=== PATIENT | female | born 1965 | race Two or more races ===

== ENCOUNTER 2019-01-23 06:41 | Day surgery (SDC) | payer OTHER ==
[2019-01-23] VITALS (11 sets, daily range): BP systolic 90–137; BP diastolic 55–86
[~2019-01-23] VITALS: Ht 157.5 cm; Wt 69.9 kg
[~2019-01-23 06:41] MED LIST: ceFAZolin 1gm IVPB IVPB ONE; celeBREX 200mg Cap **SURGERY PATIENTS ONLY ORAL ONE; oxyCONTIN 20mg tab ORAL ONE
--- NOTE | 2019-01-23 07:34 | Pre-Procedure Note/Attestation ---
Pre-Procedure Note/Attestation Complete Prior to Procedure Planned Procedure: right Procedure Narrative: knee diagnosctic arthroscopy, possible mensectomy, chondroplasty, synovectomy Indications for Procedure Pre-Operative Diagnosis: right knee internal deragment Attestation I attest that I discussed the nature of the procedure; its benefits; risks and complications; and alternatives (and the risks and benefits of such alternatives ), prior to the procedure, with the patient (or the patient's legal commissary representative). I attest that, if there was a reasonable possibility of needing a blood transfusion, the patient (or the patient's legal commissary representative) was given the [facility] standardized written summary, pursuant to the Sree Patrick Blood Safety Act ([place] Health and Safety Code # 1645, as amended). I attest that I re-evaluated the patient just prior to the surgery and that there has been no change in the patient's H&P, except as documented below: José Antonio Antony MD Jan 23, 2019 07:34
--- NOTE | 2019-01-23 07:34 | Operative Note - PDOC ---
Operative Note Operative Note Pre-op Diagnosis: right knee internal deragment Procedure: see op report Post-op Diagnosis: same as pre-op plus Operative Findings: consistent w/pre-op dx studies Anesthesia: MAC Specimen: none Complications: none Condition: stable Estimated Blood Loss: none Implant(s) used?: No José Antonio Antony MD Jan 23, 2019 07:34
[2019-01-23] MEDS ORDERED: Tylenol #3 tab (300mg/30mg) ORAL PRN (07:45)
[2019-01-23] MEDS ORDERED: HYDROmorphone 1mg/ml Carpuject SUBQ PRN (07:45)
[2019-01-23] MEDS ORDERED: D5 1/2NS 1,000 ML IV SCH (07:45)
[2019-01-23] MEDS ORDERED: HYDROcodone/Acetamin 5/325 tab ORAL PRN (07:45)
[2019-01-23] MEDS ORDERED: NKM (07:49)
[2019-01-23] MEDS ORDERED: celeBREX 200mg Cap **SURGERY PATIENTS ONLY ORAL ONE (08:07)
[2019-01-23] MEDS ORDERED: oxyCONTIN 20mg tab ORAL ONE (08:07)
--- NOTE | 2019-01-23 08:44 | Anethesia Preoperative Eval ---
Anesthesia Pre-op PMH/ROS General Date of Evaluation: Jan 23, 2019 Anesthesiologist: Troy ASA Score: ASA 1 Mallampati Score Class I : Soft palate, uvula, fauces, pillars visible Class II: Soft palate, uvula, fauces visible Class III: Soft palate, base of uvula visible Class IV: Only hard plate visible Mallampati Classification: Class I Surgeon: Arpan Diagnosis: right knee pain Surgical Procedure: right knee arthrocopy Anesthesia History: none Family History: no anesthesia problems Allergies: Coded Allergies: No Known Allergies (Unverified , 01/23/19) Medications: see eMAR Patient NPO?: Yes NPO Date: Jan 22, 2019 NPO Time: 22:00 Past Medical History Cardiovascular: Denies: HTN, CAD, [place], valve dz, arrhythmia, other Pulmonary: Denies: asthma, COPD, PORFIRIO, other Gastrointestinal/Genitourinary: Denies: GERD, CRI, ESRD, other Neurologic/Psychiatric: Denies: dementia, CVA, depression/anxiety, TIA, other Endocrine: Denies: DM, hypothyroidism, steroids, other HEENT: Denies: cataract (L), cataract (R), glaucoma, RENO-SPARKS (L), RENO-SPARKS (R), other Hematology/Immune: Denies: anemia, DVT, bleeding disorder, other Musculoskeletal/Integumentary: Denies: OA, RA, DJD, DDD, edema, other PSxH Narrative: right ear sx, c/s, cervical spine sx Anesthesia Pre-op Phys. Exam Physician Exam Last Vital Signs Date Time Temp Pulse Resp B/P (MAP) Pulse Ox O2 Delivery O2 Flow Rate FiO2 01/23/19 08:00 Room Air 01/23/19 07:56 98.0 51 18 116/74 98 Constitutional: NAD Cardiovascular: RRR Respiratory: CTA Airway Exam Mallampati Score: Class II MO: full ROM: full Teeth: intact Anesthesia Pre-op A/P Labs see chart Studies Pre-op Studies: EKG - sr Risk Assessment & Plan Assessment: ASA I Plan: GA Status Change Before Surgery: No Pre-Antibiotics Drug: Ancef 1g Given Within 1 Hr of Incision: Yes Herlinda Diallo MD Jan 23, 2019 08:44
[2019-01-23] MEDS ORDERED: LR 1000ml 1,000 ML IVLG SCH (09:04)
[2019-01-23] MEDS ORDERED: Midazolam 2mg/2ml Inj IVP PRN (09:15)
[2019-01-23] MEDS ORDERED: DiphenhydrAMINE 50mg/ml Inj IVP PRN (09:15)
[2019-01-23] MEDS ORDERED: Metoclopramide 10mg/2ml Inj IVP PRN (09:15)
[2019-01-23] MEDS ORDERED: LORazepam Inj 2mg/ml 1ml IV PRN (09:15)
[2019-01-23] MEDS ORDERED: Hydromorphone 0.5mg/0.5ml inj IVP PRN (09:15)
[2019-01-23] MEDS ORDERED: Ketorolac 30mg Inj IV PRN (09:15)
[2019-01-23] MEDS ORDERED: fentaNYL 100 mcg/2 mL IV PRN (09:15)
[2019-01-23] MEDS ORDERED: Duramorph PF 5mg/10ml amp ONE (09:18)
[2019-01-23] MEDS ORDERED: Bupivacaine w/Epi 0.5% 30ml Vial INJ ONE (09:18)
[2019-01-23] MEDS ORDERED: Lidocaine 1% 10mg/ml/Epi 0.005mg/ml 30ml vial INJ ONE (09:18)
[2019-01-23] MEDS ORDERED: Kenalog-40 1ml Vial ONE (09:18)
[2019-01-23] MEDS ORDERED: Bupivacaine 0.25% Inj 30ml INJ ONE (09:18)
[2019-01-23] MEDS ORDERED: Dexamethasone 4mg/ml vial ONE (09:52)
[2019-01-23] MEDS ORDERED: Lidocaine 1% MPF 10mg/ml 5ml ONE (09:52)
[2019-01-23] MEDS ORDERED: Propofol 200mg/20ml IV ONE (09:52)
[2019-01-23] MEDS ORDERED: Midazolam 2mg/2ml Inj ONE (09:52)
[2019-01-23] MEDS ORDERED: fentaNYL 100 mcg/2 mL ONE (09:52)
[2019-01-23] MEDS ORDERED: Sterile Water Irrig 1000ml IRRIG ONE (10:00)
[2019-01-23] MEDS ORDERED: LR 1000ml ONE (10:00)
[2019-01-23] MEDS ORDERED: Ketorolac 30mg Inj IM ONE (10:26)
[2019-01-23] MEDS ORDERED: NS Irrig 4000ml IRRIG ONE (10:30)
--- NOTE | 2019-01-23 10:47 | Immediate Post-Op Evaluation ---
Immediate Post-Op Evalulation Immediate Post-Op Evalulation Procedure: right knee arthrosocpy Date of Evaluation: Jan 23, 2019 Time of Evaluation: 10:48 IV Fluids: 500 Blood Products: 0 Estimated Blood Loss: min Urinary Output: 0 Blood Pressure Systolic: 90 Blood Pressure Diastolic: 55 Pulse Rate: 49 Respiratory Rate: 18 O2 Sat by Pulse Oximetry: 100 Temperature (Fahrenheit): 97.2 Pain Score (1-10): 0 Nausea: No Vomiting: No Complications 0 Patient Status: reacts, patent, none Hydration Status: adequate Drug: Ancef 1g Given Within 1 Hr of Incision: Yes Herlinda Diallo MD Jan 23, 2019 10:47
--- NOTE | 2019-01-23 10:47 | 48 Hour Post Anesthesia Eval ---
Post Anesthesia Evaluation Procedure: right knee arthrosocpy Date of Evaluation: Jan 23, 2019 Airway: patent Nausea: No Vomiting: No Pain Intensity: 0 Hydration Status: adequate Cardiopulmonary Status: at baseline Mental Status/LOC: patient returned to baseline Post-Anesthesia Complications: 0 Follow-up care needed: ready to discharge Herlinda Diallo MD Jan 23, 2019 10:47
--- NOTE | 2019-01-23 20:00 | Operative Note - Dictated ---
DATE OF OPERATION: 01/23/2019 PREOPERATIVE DIAGNOSES: 1. Right knee internal derangement and possible meniscal tear. 2. Right knee chondral damage. POSTOPERATIVE DIAGNOSES: 1. 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 2. Right knee osteochondral grade 2 chondral damage of the medial femoral condyle. PROCEDURES: 1. Right knee arthroscopy and synovectomy of the lateral patellofemoral compartment. 2. Gentle chondroplasty of the medial femoral condyle. SURGEON: José Antonio Antony M.D. ANESTHESIA: MAC with local. INDICATION FOR PROCEDURE: The patient is a pleasant female, who has had progressive right knee pain. She failed conservative treatment. She had an MRI, which showed some intrameniscal degeneration of the meniscus as well as subchondral damage. After failed conservative treatment, she elected to undergo right knee diagnostic arthroscopy, possible medial meniscectomy, synovectomy, and chondroplasty. Risks, limitations, expectations, and complications of the procedure were discussed in detail. All questions addressed. DESCRIPTION OF PROCEDURE: After informed consent was obtained, the patient was brought to the operating room and placed under general anesthesia, right leg was prepped and draped in a sterile manner. Time-out was performed. Inferolateral stab incision was then made. Trocar was introduced into the knee joint. There is hypertrophic synovial tissue in the retropatellar area, difficult. Medial gutter was entered and free of any meniscal or any loose bodies. Medial compartment was entered. Medial working portal was established. Synovectomy was first performed of the anterior compartment, the medial compartment, acromial arch, and lateral compartment. Once the better position was obtained, the meniscus was probed and noted to be intact. The ACL was probed and noted to be intact. The lateral compartment was entered and free of any meniscal chondral damage. Camera was repositioned in the patellofemoral compartment. Section of the fat pad synovial was completed. This revealed an area of softening of the medial femoral condyle as well as some chondral damage. The gentle chondroplasty of this area was performed. Once this was done, the instruments were removed. Portal sites were closed with 3-0 Monocryl sutures. A sterile dressing were applied. The patient was awoken and taken to recovery room with stable vital signs. ESTIMATED BLOOD LOSS: None. COMPLICATIONS: None. SPECIMENS: None. IMPLANTS: None. José Antonio Antony M.D. DR: JUANCHO JOB#: [id number] CC:
== END 2019-01-23 13:00 | disposition home or self-care (01) ==
LOC: SUR 06:41
DX: M23.321 Other meniscus derangements, posterior horn of medial meniscus, right knee (principal)
CPT/HCPCS: 29876; J0690; J1100; J1885; J2250; J2405; J2704; J3010; J3301; J3490; 94003; 94150